=== PATIENT | female | born 1935 | race Two or more races ===

== ENCOUNTER 2022-04-29 15:29 | Emergency (ER) | payer MEDICARE, MEDICAID ==
[~2022-04-29] VITALS: Ht 167.6 cm; Wt 52.0 kg
[~2022-04-29 15:29] MED LIST: APIX2.5T PO; LORAZEPAM
[2022-04-29 15:33] VITALS: BP 148/63
== END 2022-04-29 21:19 | disposition left against medical advice (07) ==
LOC: ER 15:29
DX: Z53.21 Procedure and treatment not carried out due to patient leaving prior to being seen by health care provider (principal); I49.9 Cardiac arrhythmia, unspecified
CPT/HCPCS: 93005

== ENCOUNTER 2022-12-21 17:11 | Emergency (ER) | payer MEDICARE, MEDICAID ==
[~2022-12-21] VITALS: Ht 170.2 cm; Wt 45.0 kg
[~2022-12-21 17:11] MED LIST changes: +FAMO20TA8 PO; +FLOR PO; +MEMA10TA55 PO; +MIDO2.5T PO
[2022-12-21 17:35] VITALS: O2SAT 95
[2022-12-21 17:45] LABS: BASOPHILS % 0.4 % (0.0-2.0); EOSINOPHILS % 2.3 % (0.0-5.0); HEMATOCRIT. 35.1 % (36.0-48.0); HEMOGLOBIN. 11.5 g/dL (12.0-16.0); LYMPHOCYTES % 23.7 % (20.0-50.0); MEAN CORPUSCULAR HEMOGLOBIN 29.5 pg (28.0-32.0); MEAN CORPUSCULAR HGB CONC 32.7 g/dL (31.0-37.0); MEAN CORPUSCULAR VOLUME 90.2 fL (81.0-99.0); MEAN PLATELET VOLUME 9.4 fl (7.4-10.4); MONOCYTES % 9.3 % (2.0-8.0); NEUTROPHILS % 64.3 % (40.0-76.0); PLATELET 148 x1000/uL (130-400); RED BLOOD CELL COUNT 3.89 mill/uL (4.2-5.4); RED CELL DISTRIBUTION WIDTH 14.5 % (11.6-14.6); WHITE BLOOD COUNT 4.6 x1000/uL (4.5-11.0)
[2022-12-21 17:58] LABS: INDEX HEMOLYSI 1 (1-3); INDEX ICTERIC 1 (1-4); INDEX LIPEMIC 1 (1-3); POTASSIUM 3.9 mEq/L (3.5-5.1); SODIUM 139 mEq/L (136-145)
[2022-12-21 18:06] LABS: ALANINE AMINOTRANSFERASE 19 IU/L (13-61); ALBUMIN 3.1 g/dL (3.4-5.0); ASPARTATE AMINOTRANSFERASE 13 IU/L (15-37); BILIRUBIN TOTAL 0.4 mg/dL (0.1-1.0); CALCIUM 8.7 mg/dL (8.5-10.1); CARBON DIOXIDE 23 mEq/L (21-32); CHLORIDE 112 mEq/L (98-107); CREATININE 0.5 mg/dL (0.6-1.3); GLUCOSE 105 mg/dL (70-105); PROTEIN TOTAL 6.3 g/dL (6.0-8.3); UREA NITROGEN BLOOD 12 mg/dL (7-21)
[2022-12-21 18:08] LABS: NT PRO B-TYPE NATRIURETIC PEP 859 pg/mL (5-125); TROPONIN I HIGH SENSITIVITY 41 ng/L (<54)
[2022-12-21] MEDS ORDERED: DIPHENHYDRAMINE HCL/ZINC ACET 28 GM CREAM TOP STA (18:17)
[2022-12-21] MEDS ORDERED: DIPH28.33 TP (19:48)
[2022-12-21 21:45] VITALS: BP 110/48; PULSE 85; RESP 18; TEMP 98
== END 2022-12-21 21:45 | disposition home or self-care (01) ==
LOC: ER 17:11
DX: M79.89 Other specified soft tissue disorders (principal); I48.91 Unspecified atrial fibrillation; J44.9 Chronic obstructive pulmonary disease, unspecified; I50.9 Heart failure, unspecified; Z79.899 Other long term (current) drug therapy
CPT/HCPCS: 36415; 80053; 83880; 84484; 85025; 93005; 99284

== ENCOUNTER 2023-05-10 14:03 | Emergency (ER) | payer MEDICARE, MEDICAID ==
[~2023-05-10] VITALS: Ht 170.2 cm; Wt 68.5 kg
[~2023-05-10 14:03] MED LIST changes: +DIPH28.33 TP
[2023-05-10 14:27] VITALS: TEMP 98.1; O2SAT 96
[2023-05-10 14:53] LABS: BASOPHILS % 0.8 % (0.0-2.0); EOSINOPHILS % 0.2 % (0.0-5.0); HEMATOCRIT. 35.7 % (36.0-48.0); HEMOGLOBIN. 11.7 g/dL (12.0-16.0); LYMPHOCYTES % 23.9 % (20.0-50.0); MEAN CORPUSCULAR HEMOGLOBIN 29.3 pg (28.0-32.0); MEAN CORPUSCULAR HGB CONC 32.7 g/dL (31.0-37.0); MEAN CORPUSCULAR VOLUME 89.7 fL (81.0-99.0); MEAN PLATELET VOLUME 9.4 fl (7.4-10.4); MONOCYTES % 12.7 % (2.0-8.0); NEUTROPHILS % 62.4 % (40.0-76.0); PLATELET 120 x1000/uL (130-400); RED BLOOD CELL COUNT 3.98 mill/uL (4.2-5.4); RED CELL DISTRIBUTION WIDTH 15.3 % (11.6-14.6); WHITE BLOOD COUNT 3.2 x1000/uL (4.5-11.0)
[2023-05-10 15:01] LABS: INR 1.2; PROTHROMBIN TIME 13.2 sec (9.6-11.0)
[2023-05-10 15:06] LABS: ALANINE AMINOTRANSFERASE 12 IU/L (10-49); ALBUMIN 3.9 g/dL (3.2-4.8); ASPARTATE AMINOTRANSFERASE 24 IU/L (<34); BILIRUBIN TOTAL 0.5 mg/dL (0.1-1.0); CALCIUM 8.8 mg/dL (8.7-10.4); CARBON DIOXIDE 25 mEq/L (21-32); CHLORIDE 101 mEq/L (98-107); CREATININE 0.6 mg/dL (0.6-1.0); GLUCOSE 87 mg/dL (70-105); POTASSIUM 3.7 mEq/L (3.5-5.1); PROTEIN TOTAL 6.4 g/dL (6.0-8.3); SODIUM 133 mEq/L (136-145); UREA NITROGEN BLOOD 11 mg/dL (9-23)
[2023-05-10 15:15] LABS: ETHANOL BLOOD < 10 mg/dL (<10)
[2023-05-10 15:17] LABS: TROPONIN I HIGH SENSITIVITY 37 ng/L (3.0-34)
[2023-05-10 19:16] LABS: TROPONIN I HIGH SENSITIVITY 34 ng/L (3.0-34)
[2023-05-10] MEDS: MORPHINE SULFATE 4 MG/ML CPJ (NOT FOR IM USE) IV STA (20:11)
[2023-05-10] MEDS: SODIUM CHLORIDE 0.9% 1,000 ML IV ONE (20:12)
[2023-05-10] MEDS: ONDANSETRON HCL 4MG/2ML INJ IV STA (20:12)
[2023-05-10 21:40] VITALS: BP 114/66; PULSE 92; RESP 16
== END 2023-05-10 21:47 | disposition home or self-care (01) ==
LOC: ER 14:06 → EDBEDREQTM 17:08 → EDBEDREQ 17:08 → EDBEDREQSVC 17:08 → ER 21:47
DX: R10.84 Generalized abdominal pain (principal); R11.0 Nausea; E87.1 Hypo-osmolality and hyponatremia; I48.91 Unspecified atrial fibrillation; I95.9 Hypotension, unspecified; Z79.899 Other long term (current) drug therapy
CPT/HCPCS: 80053; 80320; 83880; 83605; 83690; 85025; 85610; 84484; 36415; 71045; 74176; 93005; 99285; J7030; C1893; G0480

== ENCOUNTER 2023-05-30 10:01 | Inpatient (IN) | payer MEDICARE, MEDICAID ==
[~2023-05-30] VITALS: Ht 160 cm; Wt 61.2 kg
[2023-05-30 10:41] LABS: BASOPHILS % 0.3 % (0.0-2.0); EOSINOPHILS % 2.2 % (0.0-5.0); HEMATOCRIT. 34.6 % (36.0-48.0); HEMOGLOBIN. 11.5 g/dL (12.0-16.0); LYMPHOCYTES % 15.6 % (20.0-50.0); MEAN CORPUSCULAR HEMOGLOBIN 29.3 pg (28.0-32.0); MEAN CORPUSCULAR HGB CONC 33.2 g/dL (31.0-37.0); MEAN CORPUSCULAR VOLUME 88.2 fL (81.0-99.0); MEAN PLATELET VOLUME 9.8 fl (7.4-10.4); MONOCYTES % 10.2 % (2.0-8.0); NEUTROPHILS % 71.7 % (40.0-76.0); PLATELET 157 x1000/uL (130-400); RED BLOOD CELL COUNT 3.92 mill/uL (4.2-5.4); RED CELL DISTRIBUTION WIDTH 15.5 % (11.6-14.6); WHITE BLOOD COUNT 7.5 x1000/uL (4.5-11.0)
[2023-05-30 10:57] LABS: ALANINE AMINOTRANSFERASE 13 IU/L (10-49); ALBUMIN 4.1 g/dL (3.2-4.8); ASPARTATE AMINOTRANSFERASE 23 IU/L (<34); BILIRUBIN TOTAL 0.6 mg/dL (0.1-1.0); CALCIUM 8.9 mg/dL (8.7-10.4); CARBON DIOXIDE 23 mEq/L (21-32); CHLORIDE 105 mEq/L (98-107); CREATININE 0.6 mg/dL (0.6-1.0); GLUCOSE 95 mg/dL (70-105); POTASSIUM 3.8 mEq/L (3.5-5.1); PROTEIN TOTAL 6.8 g/dL (6.0-8.3); SODIUM 135 mEq/L (136-145); TROPONIN I HIGH SENSITIVITY 29 ng/L (3.0-34); UREA NITROGEN BLOOD 10 mg/dL (9-23)
[2023-05-30 11:17] LABS: CLARITY URINE CLEAR (CLEAR); COLOR URINE YELLOW (YELLOW); GLUCOSE URINE NEGATIVE (NEGATIVE); KETONES URINE NEGATIVE (NEGATIVE); LEUKOCYTE ESTERASE URINE NEGATIVE (NEGATIVE); NITRITE URINE NEGATIVE (NEGATIVE); OCCULT BLOOD URINE TRACE (NEGATIVE); PH URINE 6.5 (4.5-8.0); PROTEIN URINE NEGATIVE (NEGATIVE); SPECIFIC GRAVITY URINE 1.003 (1.005-1.030); UROBILINOGEN URINE 0.2 E.U./dL (0.2-1.0)
[2023-05-30 11:44] LABS: BACTERIA URINE NONE SEEN; RBC URINE 0-2 /hpf (0-2); SQUAMOUS EPITHELIAL CELL URINE NONE SEEN /lpf (RARE/1+); WBC URINE 0-2 /hpf (0-2)
[2023-05-30] MEDS: DILTIAZEM HCL 5MG/ML 5ML VIAL IV ONE (12:56)
[2023-05-30] MEDS: GUAIFENESIN/CODEINE 200-20MG/10ML UDC PO ONE (12:56)
[2023-05-30] MEDS: DILTIAZEM HCL 90MG TABLET PO ONE (14:06)
[2023-05-30 14:48] VITALS: BP 124/67; PULSE 100; RESP 18; TEMP 98
[2023-05-30] MEDS ORDERED: APIX5TAB PO (15:05)
[2023-05-30] MEDS ORDERED: PROMETHAZINE/DEXTROMETHORPHAN 6.25-15MG/5ML BOTTLE 120ML PO PRN (16:30)
[2023-05-30] MEDS ORDERED: IPRATROPIUM/ALBUTEROL 0.5-3(2.5)MG/3ML NEB HHN PRN (16:30)
[2023-05-30] MEDS: METOPROLOL TARTRATE 25MG TABLET PO SCH (17:24)
[2023-05-30] MEDS: APIXABAN 5 MG TABLET PO SCH (17:24)
[2023-05-30] MEDS: PANTOPRAZOLE 40MG DR TABLET PO SCH (17:24)
[2023-05-30 18:20] VITALS: BP 127/66; PULSE 100; RESP 20; TEMP 98
[2023-05-30 20:00] VITALS: BP 126/67; PULSE 72; RESP 18; TEMP 97.5
[2023-05-30] MEDS: SIMETHICONE 80MG TABLET CHEW PO PRN (20:26)
[2023-05-30 20:41] VITALS: BP 126/67; PULSE 72; RESP 18; TEMP 97.5
[2023-05-30] MEDS: LORAZEPAM 0.5MG TABLET PO PRN (22:24)
[2023-05-31 00:26] VITALS: BP 126/77; PULSE 82; RESP 19; TEMP 97.3
[2023-05-31] MEDS: ACETAMINOPHEN 325MG TABLET PO PRN (00:51)
[2023-05-31] MEDS: ONDANSETRON HCL 4MG/2ML INJ IV PRN (03:54)
[2023-05-31 06:27] LABS: CALCIUM 9.5 mg/dL (8.7-10.4); CARBON DIOXIDE 22 mEq/L (21-32); CHLORIDE 107 mEq/L (98-107); CREATININE 0.7 mg/dL (0.6-1.0); GLUCOSE 116 mg/dL (70-105); POTASSIUM 3.9 mEq/L (3.5-5.1); SODIUM 137 mEq/L (136-145); UREA NITROGEN BLOOD 8 mg/dL (9-23)
[2023-05-31 06:35] LABS: BASOPHILS % 0.4 % (0.0-2.0); EOSINOPHILS % 1.1 % (0.0-5.0); HEMATOCRIT. 37.4 % (36.0-48.0); HEMOGLOBIN. 12.3 g/dL (12.0-16.0); LYMPHOCYTES % 14.4 % (20.0-50.0); MEAN CORPUSCULAR HEMOGLOBIN 29.3 pg (28.0-32.0); MEAN CORPUSCULAR VOLUME 88.7 fL (81.0-99.0); MEAN PLATELET VOLUME 10.3 fl (7.4-10.4); MONOCYTES % 6.7 % (2.0-8.0); NEUTROPHILS % 77.4 % (40.0-76.0); PLATELET 153 x1000/uL (130-400); RED BLOOD CELL COUNT 4.22 mill/uL (4.2-5.4); RED CELL DISTRIBUTION WIDTH 15.3 % (11.6-14.6); WHITE BLOOD COUNT 9.5 x1000/uL (4.5-11.0)
[2023-05-31 08:00] VITALS: BP 137/79; PULSE 54; RESP 18; TEMP 97.2
[2023-05-31] MEDS: IPRATROPIUM BROMIDE (0.02%) 0.5MG/2.5ML NEB HHN SCH (08:41)
[2023-05-31] MEDS ORDERED: ENOXAPARIN 40MG/0.4ML SYR SUBCUT SCH (09:00)
[2023-05-31 12:00] VITALS: BP 132/76; PULSE 89; RESP 18; TEMP 97.5
[2023-05-31] MEDS ORDERED: LORAZEPAM 0.5MG TABLET PO PRN (14:30)
[2023-05-31 16:00] VITALS: BP 139/76; PULSE 83; RESP 18; TEMP 98.8
[2023-05-31 20:00] VITALS: BP 115/83; PULSE 101; RESP 18; TEMP 97.5
[2023-05-31] MEDS: PREDNISONE 20MG TABLET PO SCH (22:45)
[2023-05-31] MEDS: AZITHROMYCIN 500MG/250ML 250 ML IV SCH (23:58)
[2023-05-31] MEDS: CEFTRIAXONE 1GM/50ML 50 ML IV SCH (23:59)
[2023-06-01] VITALS (7 sets, daily range): BP systolic 101–174; BP diastolic 49–98; PULSE 62–99; RESP 16–20; TEMP 97–97.6; O2SAT 92
[2023-06-01] MEDS: CLONIDINE 0.1MG TABLET PO PRN (06:24)
[2023-06-01] MEDS: FAMOTIDINE 20MG TABLET PO SCH (09:47)
[2023-06-01] MEDS ORDERED: METO25TA6 PO (14:07)
[2023-06-01] MEDS ORDERED: P20 PO (14:07)
[2023-06-01] MEDS ORDERED: AZIT250T12 PO (14:07)
== END 2023-06-01 23:00 | disposition home or self-care (01) | DRG 202 ==
LOC: ER 10:16 → 7WST 12:46 → EDBEDREQTM 12:58 → EDBEDREQ 12:58 → EDBEDREQTM 13:07 → ER 14:42
PROVIDERS: ADMIT Internal Medicine; ATTEND Internal Medicine
DX: J20.9 Acute bronchitis, unspecified (principal); I48.20 Chronic atrial fibrillation, unspecified; D64.9 Anemia, unspecified; I10 Essential (primary) hypertension; R00.0 Tachycardia, unspecified; Z79.01 Long term (current) use of anticoagulants; Z88.8 Allergy status to other drugs, medicaments and biological substances
CPT/HCPCS: 36415; 71045; 80048; 80053; 81003; 83880; 84484; 85025; 93005; 93306; 94640; 99285; J0456; J0696; J2405; J3490; J7512

== ENCOUNTER 2023-06-06 18:49 | Inpatient (IN) | payer MEDICARE, MEDICAID ==
[~2023-06-06] VITALS: Ht 170.2 cm; Wt 68.5 kg
[~2023-06-06 18:49] MED LIST changes: -APIX2.5T PO; +APIX5TAB PO; +AZIT250T12 PO; -LORAZEPAM; +METO25TA6 PO; +P20 PO
[2023-06-06] MEDS: KETOROLAC 60MG/2ML VIAL IM STA (19:52)
[2023-06-06] MEDS ORDERED: DICYCLOMINE 10 MG/5 ML ORAL SYR PO STA (19:52)
[2023-06-06] MEDS: MAGNESIUM/ALUMINUM HYDROXIDE/SIMETHICONE 30ML UDC PO STA (19:52)
[2023-06-06] MEDS: DICYCLOMINE HCL 10MG CAPSULE PO NR (20:04)
[2023-06-06] MEDS ORDERED: MIDAZOLAM HCL 2 MG/2 ML VIAL IM PRN (23:15)
[2023-06-06 23:20] LABS: BASOPHILS % 0.4 % (0.0-2.0); EOSINOPHILS % 2.7 % (0.0-5.0); HEMATOCRIT. 36.2 % (36.0-48.0); HEMOGLOBIN. 11.6 g/dL (12.0-16.0); LYMPHOCYTES % 28.6 % (20.0-50.0); MEAN CORPUSCULAR HEMOGLOBIN 29.2 pg (28.0-32.0); MEAN CORPUSCULAR HGB CONC 32.2 g/dL (31.0-37.0); MEAN CORPUSCULAR VOLUME 90.8 fL (81.0-99.0); MEAN PLATELET VOLUME 9.3 fl (7.4-10.4); MONOCYTES % 8.8 % (2.0-8.0); NEUTROPHILS % 59.5 % (40.0-76.0); PLATELET 146 x1000/uL (130-400); RED BLOOD CELL COUNT 3.98 mill/uL (4.2-5.4); RED CELL DISTRIBUTION WIDTH 15.6 % (11.6-14.6)
[2023-06-06 23:29] LABS: INR 1.1; PROTHROMBIN TIME 11.7 sec (9.6-11.0)
[2023-06-06 23:33] LABS: ALANINE AMINOTRANSFERASE 14 IU/L (10-49); ALBUMIN 4.3 g/dL (3.2-4.8); ASPARTATE AMINOTRANSFERASE 22 IU/L (<34); BILIRUBIN TOTAL 0.5 mg/dL (0.1-1.0); CALCIUM 9.5 mg/dL (8.7-10.4); CARBON DIOXIDE 27 mEq/L (21-32); CHLORIDE 105 mEq/L (98-107); CREATININE 0.7 mg/dL (0.6-1.0); GLUCOSE 101 mg/dL (70-105); POTASSIUM 3.8 mEq/L (3.5-5.1); PROTEIN TOTAL 6.8 g/dL (6.0-8.3); SODIUM 137 mEq/L (136-145); TROPONIN I HIGH SENSITIVITY 29 ng/L (3.0-34); UREA NITROGEN BLOOD 10 mg/dL (9-23)
[2023-06-07 13:10] VITALS: BP 137/79; PULSE 90; RESP 20; TEMP 98.8
[2023-06-07 13:54] VITALS: BP 137/79; PULSE 90; RESP 20; TEMP 98.8
[2023-06-07] MEDS: SIMETHICONE 80MG TABLET CHEW PO PRN (14:28)
[2023-06-07] MEDS: LORAZEPAM 0.5MG TABLET PO PRN (14:28)
[2023-06-07] MEDS ORDERED: CLONIDINE 0.1MG TABLET PO PRN (14:30)
[2023-06-07] MEDS ORDERED: ONDANSETRON HCL 4MG/2ML INJ IV PRN (14:30)
[2023-06-07] MEDS ORDERED: CHOL-36 (14:34)
[2023-06-07] MEDS: APIXABAN 5 MG TABLET PO SCH (14:55)
[2023-06-07 16:00] VITALS: BP 123/69; PULSE 89; RESP 18; TEMP 98.2
[2023-06-07] MEDS: DOCUSATE SODIUM 100MG CAPSULE PO SCH (17:17)
[2023-06-07] MEDS: FAMOTIDINE 20MG TABLET PO SCH (17:17)
[2023-06-07] MEDS: QUETIAPINE FUMARATE 50MG TABLET PO SCH (17:17)
[2023-06-07 20:00] VITALS: BP 119/97; PULSE 115; RESP 19; TEMP 98.2
[2023-06-07] MEDS: ACETAMINOPHEN 325MG TABLET PO PRN (20:04)
[2023-06-07] MEDS: METOPROLOL TARTRATE 25MG TABLET PO SCH (21:00)
[2023-06-08] VITALS: BP 124/68; PULSE 93; RESP 18; TEMP 97.5
[2023-06-08 08:00] VITALS: BP 133/67; PULSE 95; RESP 18; TEMP 98.1
[2023-06-08] MEDS: MEMANTINE HCL 10MG TABLET PO SCH (09:07)
[2023-06-08] MEDS: POLYETHYLENE GLYCOL 3350 (17GM) 1 DOSE PACK PO SCH (09:10)
[2023-06-08 12:00] VITALS: BP 94/53; PULSE 87; RESP 17; TEMP 98.2
[2023-06-08 16:00] VITALS: BP 124/71; PULSE 87; RESP 18; TEMP 98
[2023-06-08 23:48] LABS: BASOPHILS % 1.3 % (0.0-2.0); EOSINOPHILS % 5.9 % (0.0-5.0); HEMATOCRIT. 35.3 % (36.0-48.0); HEMOGLOBIN. 11.5 g/dL (12.0-16.0); LYMPHOCYTES % 34.6 % (20.0-50.0); MEAN CORPUSCULAR HEMOGLOBIN 29.2 pg (28.0-32.0); MEAN CORPUSCULAR HGB CONC 32.5 g/dL (31.0-37.0); MEAN CORPUSCULAR VOLUME 89.9 fL (81.0-99.0); MEAN PLATELET VOLUME 9.7 fl (7.4-10.4); MONOCYTES % 11.3 % (2.0-8.0); NEUTROPHILS % 46.9 % (40.0-76.0); PLATELET 148 x1000/uL (130-400); RED BLOOD CELL COUNT 3.93 mill/uL (4.2-5.4); RED CELL DISTRIBUTION WIDTH 15.4 % (11.6-14.6); WHITE BLOOD COUNT 4.1 x1000/uL (4.5-11.0)
[2023-06-09] VITALS: BP 105/63; PULSE 77; RESP 18; TEMP 98.5
[2023-06-09 00:18] LABS: CALCIUM 9.3 mg/dL (8.7-10.4); CARBON DIOXIDE 23 mEq/L (21-32); CHLORIDE 107 mEq/L (98-107); CREATININE 0.7 mg/dL (0.6-1.0); GLUCOSE 115 mg/dL (70-105); POTASSIUM 4.2 mEq/L (3.5-5.1); SODIUM 137 mEq/L (136-145); UREA NITROGEN BLOOD 15 mg/dL (9-23)
[2023-06-09 08:00] VITALS: BP 92/50; PULSE 82; RESP 18; TEMP 97.1
[2023-06-09 16:59] VITALS: BP 94/48; PULSE 98; TEMP 97.9; O2SAT 98
== END 2023-06-09 18:33 | DRG 392 ==
LOC: ER 18:49 → 4WST 23:33 → EDBEDREQ 06-07 09:42 → 7WST 06-08 22:48
PROVIDERS: ADMIT Internal Medicine; ATTEND Internal Medicine
DX: K29.70 Gastritis, unspecified, without bleeding (principal); I50.30 Unspecified diastolic (congestive) heart failure; I48.20 Chronic atrial fibrillation, unspecified; K59.00 Constipation, unspecified; I11.0 Hypertensive heart disease with heart failure; E78.5 Hyperlipidemia, unspecified; R53.83 Other fatigue; K21.9 Gastro-esophageal reflux disease without esophagitis; F99 Mental disorder, not otherwise specified; Z79.01 Long term (current) use of anticoagulants
CPT/HCPCS: 36415; 71045; 74176; 80048; 80053; 84484; 85025; 93005; 99285; J1885; J2250

== ENCOUNTER 2023-07-07 15:04 | Emergency (ER) | payer MEDICARE, MEDICAID ==
[~2023-07-07] VITALS: Ht 172.7 cm; Wt 57.0 kg
[~2023-07-07 15:04] MED LIST changes: +CHOL-36
[2023-07-07 15:12] VITALS: O2SAT 98
[2023-07-07] MEDS: HYDROCODONE/ACETAMINOPHEN 5/325MG TABLET PO ONE (16:40)
[2023-07-07 17:02] LABS: CLARITY URINE CLEAR (CLEAR); COLOR URINE DARK YELLOW (YELLOW); GLUCOSE URINE NEGATIVE (NEGATIVE); KETONES URINE NEGATIVE (NEGATIVE); LEUKOCYTE ESTERASE URINE NEGATIVE (NEGATIVE); NITRITE URINE NEGATIVE (NEGATIVE); OCCULT BLOOD URINE NEGATIVE (NEGATIVE); PROTEIN URINE NEGATIVE (NEGATIVE); SPECIFIC GRAVITY URINE 1.011 (1.005-1.030); UROBILINOGEN URINE 0.2 E.U./dL (0.2-1.0)
[2023-07-07 17:37] LABS: BASOPHILS % 0.7 % (0.0-2.0); EOSINOPHILS % 1.4 % (0.0-5.0); HEMATOCRIT. 36.3 % (36.0-48.0); HEMOGLOBIN. 11.9 g/dL (12.0-16.0); LYMPHOCYTES % 22.6 % (20.0-50.0); MEAN CORPUSCULAR HEMOGLOBIN 29.6 pg (28.0-32.0); MEAN CORPUSCULAR HGB CONC 32.8 g/dL (31.0-37.0); MEAN CORPUSCULAR VOLUME 90.3 fL (81.0-99.0); MEAN PLATELET VOLUME 9.9 fl (7.4-10.4); MONOCYTES % 9.1 % (2.0-8.0); NEUTROPHILS % 66.2 % (40.0-76.0); PLATELET 148 x1000/uL (130-400); RED BLOOD CELL COUNT 4.02 mill/uL (4.2-5.4); RED CELL DISTRIBUTION WIDTH 16.1 % (11.6-14.6); WHITE BLOOD COUNT 5.4 x1000/uL (4.5-11.0)
[2023-07-07 17:59] LABS: ALANINE AMINOTRANSFERASE 10 IU/L (10-49); ASPARTATE AMINOTRANSFERASE 21 IU/L (<34); BILIRUBIN TOTAL 0.4 mg/dL (0.1-1.0); CALCIUM 9.1 mg/dL (8.7-10.4); CARBON DIOXIDE 25 mEq/L (21-32); CHLORIDE 105 mEq/L (98-107); CREATININE 0.6 mg/dL (0.6-1.0); GLUCOSE 91 mg/dL (70-105); POTASSIUM 3.9 mEq/L (3.5-5.1); PROTEIN TOTAL 6.2 g/dL (6.0-8.3); SODIUM 136 mEq/L (136-145); UREA NITROGEN BLOOD 11 mg/dL (9-23)
[2023-07-07] MEDS ORDERED: T3 PO ×2 (18:07→18:09)
[2023-07-07 18:57] VITALS: BP 132/68; PULSE 104; RESP 16; TEMP 97.9
== END 2023-07-07 19:14 ==
LOC: ER 15:04
DX: G89.29 Other chronic pain (principal); I10 Essential (primary) hypertension; I50.9 Heart failure, unspecified; Z88.8 Allergy status to other drugs, medicaments and biological substances; Z88.5 Allergy status to narcotic agent; Z88.9 Allergy status to unspecified drugs, medicaments and biological substances; Z79.899 Other long term (current) drug therapy
CPT/HCPCS: 36415; 80053; 81003; 85025; 99283

== ENCOUNTER 2023-08-09 19:43 | Emergency (ER) | payer MEDICARE, MEDICAID ==
[~2023-08-09] VITALS: Ht 157.5 cm; Wt 55.0 kg
[~2023-08-09 19:43] MED LIST changes: +T3 PO
[2023-08-09 19:51] VITALS: O2SAT 98
[2023-08-09] MEDS ORDERED: MORPHINE SULFATE 4 MG/ML INJ (FOR IV/IM USE) IV STA (20:10)
[2023-08-09] MEDS ORDERED: ONDANSETRON HCL 4MG/2ML INJ IV STA (20:10)
[2023-08-09] MEDS: MORPHINE SULFATE 4 MG/ML INJ (FOR IV/IM USE) IV NR (21:30)
[2023-08-09] MEDS: ONDANSETRON HCL 4MG/2ML INJ IV NR (21:30)
[2023-08-09] MEDS: SODIUM CHLORIDE 0.9% 1,000 ML IV ONE (21:30)
[2023-08-09 21:43] LABS: BASOPHILS % 0.5 % (0.0-2.0); EOSINOPHILS % 1.1 % (0.0-5.0); HEMATOCRIT. 35.8 % (36.0-48.0); HEMOGLOBIN. 11.8 g/dL (12.0-16.0); LYMPHOCYTES % 25.6 % (20.0-50.0); MEAN CORPUSCULAR HEMOGLOBIN 29.4 pg (28.0-32.0); MEAN CORPUSCULAR HGB CONC 32.8 g/dL (31.0-37.0); MEAN CORPUSCULAR VOLUME 89.7 fL (81.0-99.0); MEAN PLATELET VOLUME 9.3 fl (7.4-10.4); NEUTROPHILS % 64.8 % (40.0-76.0); PLATELET 157 x1000/uL (130-400); RED BLOOD CELL COUNT 3.99 mill/uL (4.2-5.4); RED CELL DISTRIBUTION WIDTH 15.7 % (11.6-14.6)
[2023-08-09 21:47] LABS: CHLORIDE 109 mEq/L (98-107); POTASSIUM 3.6 mEq/L (3.5-5.1); SODIUM 138 mEq/L (136-145)
[2023-08-09 21:48] LABS: CARBON DIOXIDE 25 mEq/L (21-32)
[2023-08-09 21:52] LABS: CREATININE 0.7 mg/dL (0.6-1.0)
[2023-08-09 21:53] LABS: GLUCOSE 89 mg/dL (70-105); UREA NITROGEN BLOOD 11 mg/dL (9-23)
[2023-08-09 21:54] LABS: TROPONIN I HIGH SENSITIVITY 29 ng/L (3.0-34)
[2023-08-09 21:55] LABS: ALANINE AMINOTRANSFERASE 11 IU/L (10-49); ALBUMIN 4.1 g/dL (3.2-4.8); ASPARTATE AMINOTRANSFERASE 21 IU/L (<34); BILIRUBIN DIRECT 0.1 mg/dL (<=3.0); BILIRUBIN TOTAL 0.4 mg/dL (0.1-1.0); PROTEIN TOTAL 6.5 g/dL (6.0-8.3)
[2023-08-09 22:02] LABS: INR 1.1; PROTHROMBIN TIME 11.9 sec (9.6-11.0)
[2023-08-09 22:33] VITALS: TEMP 98.2
[2023-08-10] MEDS: DICYCLOMINE 10 MG/5 ML ORAL SYR PO STA (00:48)
[2023-08-10] MEDS: NA PHOS,M-B/NA PHOS,DI-BA ENEMA 118ML PR ONE ×2 (01:00→01:15)
[2023-08-10] MEDS: ONDANSETRON 4MG ODT PO STA (01:02)
[2023-08-10] MEDS: MAGNESIUM/ALUMINUM HYDROXIDE/SIMETHICONE 30ML UDC PO STA (01:02)
[2023-08-10] MEDS: KETOROLAC 30MG/ML VIAL IV STA (01:02)
[2023-08-10] MEDS: MORPHINE SULFATE 4 MG/ML INJ (FOR IV/IM USE) IV ONE (01:13)
[2023-08-10] MEDS: LORAZEPAM 2MG/ML INJ IV ONE (03:27)
[2023-08-10 03:41] LABS: CLARITY URINE CLEAR (CLEAR); COLOR URINE YELLOW (YELLOW); GLUCOSE URINE NEGATIVE (NEGATIVE); KETONES URINE NEGATIVE (NEGATIVE); LEUKOCYTE ESTERASE URINE TRACE (NEGATIVE); NITRITE URINE NEGATIVE (NEGATIVE); OCCULT BLOOD URINE NEGATIVE (NEGATIVE); PH URINE 5.5 (4.5-8.0); PROTEIN URINE NEGATIVE (NEGATIVE); SPECIFIC GRAVITY URINE 1.008 (1.005-1.030); UROBILINOGEN URINE 0.2 E.U./dL (0.2-1.0)
[2023-08-10 04:54] VITALS: BP 137/65; PULSE 86; RESP 13
[2023-08-10 07:53] LABS: SQUAMOUS EPITHELIAL CELL URINE FEW /lpf (RARE/1+)
[2023-08-10 07:56] LABS: RBC URINE 0-2 /hpf (0-2); WBC URINE 0-2 /hpf (0-2)
[2023-08-10 07:57] LABS: BACTERIA URINE NONE SEEN
== END 2023-08-10 04:55 | disposition home or self-care (01) ==
LOC: ER 19:43
DX: K21.9 Gastro-esophageal reflux disease without esophagitis (principal); I50.9 Heart failure, unspecified; Z88.6 Allergy status to analgesic agent; Z88.5 Allergy status to narcotic agent; Z88.8 Allergy status to other drugs, medicaments and biological substances
CPT/HCPCS: 99285; 96374; 96361; 71045; 96375 ×2; 80076; 80048; 83605; 83690; 85025; 85610; 86850; 86900; 86901; 84484; 36415; 81003; J2405; J2270 ×2; J7030; Q0162; J1885; J2060

== ENCOUNTER 2024-05-04 14:16 | Emergency (ER) | payer MEDICARE, MEDICAID ==
[~2024-05-04] VITALS: Ht 167.6 cm; Wt 60.0 kg
[~2024-05-04 14:16] MED LIST changes: -AZIT250T12 PO; -DIPH28.33 TP; +DOCU-138 PO; -FLOR PO; -MEMA10TA55 PO; -MIDO2.5T PO; -P20 PO; +SERT25TA74 MT; +SIME80TA16 PO; +SUCR1TAB30 MT; -T3 PO
[2024-05-04 14:18] VITALS: O2SAT 95
[2024-05-04 15:34] LABS: BASOPHILS % 0.7 % (0.0-2.0); EOSINOPHILS % 2.7 % (0.0-5.0); HEMATOCRIT. 37.2 % (36.0-48.0); HEMOGLOBIN. 12.2 g/dL (12.0-16.0); LYMPHOCYTES % 24.8 % (20.0-50.0); MEAN CORPUSCULAR HEMOGLOBIN 29.9 pg (28.0-32.0); MEAN CORPUSCULAR HGB CONC 32.7 g/dL (31.0-37.0); MEAN CORPUSCULAR VOLUME 91.5 fL (81.0-99.0); MEAN PLATELET VOLUME 9.2 fl (7.4-10.4); MONOCYTES % 10.2 % (2.0-8.0); NEUTROPHILS % 61.6 % (40.0-76.0); PLATELET 152 x1000/uL (130-400); RED BLOOD CELL COUNT 4.07 mill/uL (4.2-5.4); RED CELL DISTRIBUTION WIDTH 16.7 % (11.6-14.6); WHITE BLOOD COUNT 4.8 x1000/uL (4.5-11.0)
[2024-05-04 15:42] LABS: CHLORIDE 107 mEq/L (98-107); POTASSIUM 3.7 mEq/L (3.5-5.1); SODIUM 139 mEq/L (136-145)
[2024-05-04 15:43] LABS: CALCIUM 9.2 mg/dL (8.7-10.4); CARBON DIOXIDE 27 mEq/L (21-32); INR 1.1
[2024-05-04] MEDS: PREDNISONE 20MG TABLET PO NR (15:45)
[2024-05-04] MEDS ORDERED: IPRATROPIUM/ALBUTEROL 0.5-3(2.5)MG/3ML NEB HHN NR (15:45)
[2024-05-04] MEDS ORDERED: PREDNISONE 20MG TABLET PO ONE (15:45)
[2024-05-04 15:48] LABS: CREATININE 0.6 mg/dL (0.6-1.0); GLUCOSE 97 mg/dL (70-105); UREA NITROGEN BLOOD 15 mg/dL (9-23)
[2024-05-04 15:50] LABS: TROPONIN I HIGH SENSITIVITY 18 ng/L (3.0-34)
[2024-05-04 16:06] VITALS: PULSE 84; RESP 20
[2024-05-04] MEDS: IPRATROPIUM/ALBUTEROL 0.5-3(2.5)MG/3ML NEB HHN ONE (16:06)
[2024-05-04] MEDS ORDERED: P50 MT (17:28)
[2024-05-04] MEDS ORDERED: ALBU18HF2 IH (17:28)
[2024-05-04 19:15] VITALS: BP 119/68; PULSE 76; RESP 14; TEMP 36.6; O2SAT 97
== END 2024-05-04 19:16 | disposition home or self-care (01) ==
LOC: ER 14:16
DX: J45.909 Unspecified asthma, uncomplicated (principal); J06.9 Acute upper respiratory infection, unspecified; K58.9 Irritable bowel syndrome, unspecified; I48.91 Unspecified atrial fibrillation; Z79.01 Long term (current) use of anticoagulants; Z88.8 Allergy status to other drugs, medicaments and biological substances; Z88.5 Allergy status to narcotic agent
CPT/HCPCS: 99285; 94070; 71045; 80048; 83880; 85025; 85610; 84484; 36415; 94640; 93005; 98960; J7512; 94664

== ENCOUNTER 2025-03-21 18:00 | Emergency (ER) | payer MEDICARE, MEDICAID ==
[~2025-03-21] VITALS: Ht 170.2 cm; Wt 59.0 kg
[~2025-03-21 18:00] MED LIST changes: +ALBU18HF2 IH; +DAPA10TA PO; +ESOM40CA65 PO; +LEVO-65 MT
[2025-03-21 18:04] VITALS: TEMP 98.4; O2SAT 95
[2025-03-21] MEDS: MAGNESIUM/ALUMINUM HYDROXIDE/SIMETHICONE 30ML UDC PO ONE (18:45)
[2025-03-21] MEDS: PANTOPRAZOLE SODIUM 40 MG/VIAL IV ONE (18:45)
[2025-03-21] MEDS: ONDANSETRON HCL 4MG/2ML INJ IV ONE (18:45)
[2025-03-21 18:55] LABS: BASOPHILS % 0.6 % (0.0-2.0); EOSINOPHILS % 2.3 % (0.0-5.0); HEMATOCRIT. 40.2 % (36.0-48.0); HEMOGLOBIN. 13.0 g/dL (12.0-16.0); LYMPHOCYTES % 32.0 % (20.0-50.0); MEAN PLATELET VOLUME 9.3 fl (7.4-10.4); MONOCYTES % 10.3 % (2.0-8.0); NEUTROPHILS % 54.8 % (40.0-76.0); PLATELET 158 x1000/uL (130-400); RED BLOOD CELL COUNT 4.45 mill/uL (4.2-5.4); RED CELL DISTRIBUTION WIDTH 14.7 % (11.6-14.6)
[2025-03-21 19:01] VITALS: RESP 22
[2025-03-21 19:09] LABS: CREATININE 0.6 mg/dL (0.6-1.0)
[2025-03-21 19:10] LABS: PROTEIN TOTAL 6.5 g/dL (6.0-8.3); UREA NITROGEN BLOOD 9 mg/dL (9-23)
[2025-03-21 19:11] LABS: ASPARTATE AMINOTRANSFERASE 19 IU/L (<34); TROPONIN I HIGH SENSITIVITY 23 ng/L (3.0-34)
[2025-03-21 19:12] LABS: BILIRUBIN DIRECT 0.2 mg/dL (<=3.0); BILIRUBIN TOTAL 0.9 mg/dL (0.1-1.0)
[2025-03-21 19:22] LABS: INR 1.1
[2025-03-21 20:48] VITALS: BP 132/101; PULSE 97; O2SAT 97
== END 2025-03-21 20:52 | disposition home or self-care (01) ==
LOC: ER 18:00
DX: K29.70 Gastritis, unspecified, without bleeding (principal); K21.9 Gastro-esophageal reflux disease without esophagitis; R10.84 Generalized abdominal pain; I48.91 Unspecified atrial fibrillation; F03.94 Unspecified dementia, unspecified severity, with anxiety; I50.9 Heart failure, unspecified; K58.9 Irritable bowel syndrome, unspecified; Z87.19 Personal history of other diseases of the digestive system; Z79.84 Long term (current) use of oral hypoglycemic drugs; Z79.01 Long term (current) use of anticoagulants; Z88.8 Allergy status to other drugs, medicaments and biological substances; Z88.5 Allergy status to narcotic agent
CPT/HCPCS: 99285; 96374; 71045; 96375; 80076; 80048; 83880; 83690; 85025; 85610; 84484; 36415; 93005; J2405; J2470